=== PATIENT | female | born 1960 | race Caucasian/White ===

== ENCOUNTER → 2022-01-27 | Outpatient (CLI) | payer OTHER, SELFPAY ==
[2022-01-27 12:39] LABS: Absolute Lymphocyte Count 1.04 X10^3/uL (0.83-4.51); Absolute Neutrophil Count 5.5 X10^3/uL (2.0-7.7); Basophil# 0.06 X10^3/uL; Basophil% 0.8 % (0-1); Eosinophil# 0.02 X10^3/uL; Eosinophils% 0.3 % (0-5); Hematocrit 35.4 % (37-47); Hemoglobin 11.8 g/dL (12.0-15.0); Lymphocyte # 1.04 X10^3/ul (0.83-4.51); Lymphocyte % 14.1 % (19-41); Mean Corp Hgb Conc 33.3 g/dL (32-36); Mean Corpuscular Volume 98.9 fL (81-99); Mean Platelet Vol. 11.4 fl (6.2-12.0); Monocyte# 0.73 X10^3/uL; Monocyte% 9.9 % (0-10); NRBC Flagged by Analyzer 0 % (0-5); Neutrophil # 5.53 X10^3/uL (2.7-7.7); Neutrophil % 74.6 % (47-70); Platelet Count 146 K/mm3 (150-450); RBC Distribution Width CV 15.9 % (11.6-14.6); RBC Distribution Width SD 57.9 fl (35.1-43.9); Red Blood Count 3.58 M/mm3 (4.2-5.4); White Blood Count 7.4 K/mm3 (4.4-11.0)
[2022-01-27 13:05] LABS: ALB/GLOB Ratio 0.5 RATIO (0.9-2.4); AST(SGOT) 243 U/L (15-37); Alanine Aminotransfer ALT/SGPT 47 U/L (13-56); Albumin, Serum 2.5 g/dL (3.2-5.0); Alkaline Phosphatase 180 U/L (45-117); Anion Gap 13 (5-15); BUN 4 mg/dL (7-18); BUN/Creat Ratio 6.8 RATIO (10-20); Calcium,Total 7.8 mg/dL (8.5-10.1); Chloride 101 mmol/L (98-107); Cholesterol 215 mg/dL (200); Creatinine, Serum 0.58 mg/dL (0.55-1.02); EST Glomerular Filtration Rate 112 mL/min (>60); Est Glom Filt Rate - Afr Amer 135 mL/min (>60); Globulin 5.3 g/dL (2.2-4.2); Glucose 100 mg/dL (74-106); High Density Lipoprotein 14 mg/dL; Potassium 3.6 mmol/L (3.5-5.1); Protein, Total 7.8 g/dL (6.4-8.2); Sodium Level 138 mmol/L (136-145); Thyroid Stim Hormone (TSH) 8.14 uIU/mL (0.358-3.74); Triglycerides 189 mg/dL; Very Low Density Lipoprotein 38 mg/dL (5-40)
== END | disposition home or self-care (01) ==
LOC: MFPLAB 09:30
PROVIDERS: Family Medicine; PCP Family Medicine; Visit Provider Family Medicine
DX: M79.89 Other specified soft tissue disorders (principal); E78.2 Mixed hyperlipidemia
CPT/HCPCS: 36415; 80053; 80061; 84443; 85025

== ENCOUNTER → 2022-02-05 | Outpatient (CLI) | payer OTHER, SELFPAY ==
[2022-02-05 18:54] LABS: AST(SGOT) 191 U/L (15-37); Alanine Aminotransfer ALT/SGPT 60 U/L (13-56); Albumin, Serum 2.4 g/dL (3.2-5.0); Alkaline Phosphatase 139 U/L (45-117); Bilirubin, Direct 3.92 mg/dL (0.00-0.30); Globulin 4.8 g/dL (2.2-4.2); Protein, Total 7.2 g/dL (6.4-8.2)
== END | disposition home or self-care (01) ==
LOC: MFPLAB 15:25
PROVIDERS: PCP Family Medicine; Referring Provider Family Medicine; Visit Provider Family Medicine
DX: K76.9 Liver disease, unspecified (principal)
CPT/HCPCS: 36415; 80076

== ENCOUNTER → 2022-02-19 | Outpatient (CLI) | payer OTHER, SELFPAY ==
[2022-02-19 17:43] LABS: International Normalized Ratio 1.5; Prothrombin Time (Protime)PT. 18.2 SECONDS (11.7-14.9)
[2022-02-19 17:59] LABS: ALB/GLOB Ratio 0.4 RATIO (0.9-2.4); AST(SGOT) 165 U/L (15-37); Alanine Aminotransfer ALT/SGPT 57 U/L (13-56); Albumin, Serum 2.1 g/dL (3.2-5.0); Alkaline Phosphatase 130 U/L (45-117); Anion Gap 9 (5-15); BUN 9 mg/dL (7-18); BUN/Creat Ratio 12.7 RATIO (10-20); Calcium,Total 8.1 mg/dL (8.5-10.1); Chloride 96 mmol/L (98-107); Creatinine, Serum 0.71 mg/dL (0.55-1.02); EST Glomerular Filtration Rate 89 mL/min (>60); Est Glom Filt Rate - Afr Amer 108 mL/min (>60); Globulin 4.9 g/dL (2.2-4.2); Glucose 116 mg/dL (74-106); Potassium 3.6 mmol/L (3.5-5.1); Sodium Level 133 mmol/L (136-145)
== END | disposition home or self-care (01) ==
LOC: MFPLAB 16:11
PROVIDERS: PCP Family Medicine; Referring Provider Family Medicine; Visit Provider Family Medicine
DX: R94.5 Abnormal results of liver function studies (principal)
CPT/HCPCS: 36415; 80053; 85610

== ENCOUNTER → 2022-02-20 | Outpatient (CLI) | payer OTHER, SELFPAY ==
--- NOTE | 2022-02-20 15:00 | CT_ITS ---
INDICATION: Abnormal liver and abnormal abdominal swelling EXAMINATION: CT ABDOMEN AND PELVIS WITH AND WITHOUT CONTRAST - CT Abdomen And Pelvis WO/W Contrast Injection TECHNIQUE: Helically acquired images were obtained of the abdomen and pelvis both before and after IV contrast. A radiation dose optimization technique was used for this scan. IV Contrast dosage and agent: 100 mL of [id number]. Oral contrast: None. COMPARISON: None. FINDINGS: LOWER CHEST: Small bilateral pleural effusions are visualized, fluid level visualized within the right fissure. Subtle focal consolidations visualized in bilateral lower lung aragon. LIVER: Liver is slightly small in size demonstrates a nodular surface, a 2.1 cm lobulated low-attenuation lesion/cyst is visualized in the anterolateral aspect of the right lobe of the liver/simple cyst is visualized on axial series 2 image 32. A 1.1 cm area of low attenuation is visualized in the right lobe of the liver visualized on axial series 3 image 23. No evidence of intrahepatic biliary dilatation is visualized. The portal vein is small in size. GALLBLADDER AND BILIARY TREE: Irregular thickening of the wall of the gallbladder is visualized. Subtle layering calcifications visualized within the gallbladder but no evidence of distention to suggest obstruction. PANCREAS: No focal cystic or solid mass. SPLEEN: Normal size without focal cystic or solid mass. ADRENAL GLANDS: No nodules. KIDNEYS AND URETERS: Normal renal size and position. No hydronephrosis. PERITONEUM: Extensive amount of free fluid is visualized within the peritoneal cavity. Extension of fluid through bilateral inguinal canals is visualized more prominent on the left. A defect is visualized in the anterior abdominal wall in the midline with herniation of omentum seen. BOWEL: No evidence of acute appendicitis. No stomach or bowel distension. No focal inflammatory change. LYMPH NODES: Prominent ovoid low-attenuation retroperitoneal lymph nodes visualized on coronal series 601 image 78 measuring 1.3 and 2.0 cm. VESSELS: Prominent vessels visualized in the left upper quadrant. Prominent mesenteric vessels. Prominent ovarian vessels. Aorta is non-dilated. URINARY BLADDER: The bladder is decompressed. REPRODUCTIVE ORGANS: Atrophic uterus is seen. ABDOMINAL WALL: Stranding of the subcutaneous soft tissues is visualized but no evidence of localized collections is seen. BONES: No lytic or blastic abnormality. Degenerative bone changes seen. CT/CT Abd/Pelvis W/WO Contrast IMPRESSION: Extensive ascites is seen. Prominent vessels seen suggestive of portosystemic anastomosis. Small portal vein. Liver is small in size with nodular appearance of focal areas of low attenuation seen. Electronically Signed: Diego Rodriguez MD at 16:17 EDT ,
== END | disposition home or self-care (01) ==
LOC: CT 14:58
PROVIDERS: PCP Family Medicine; Visit Provider Family Medicine
DX: R14.0 Abdominal distension (gaseous) (principal); R94.5 Abnormal results of liver function studies
CPT/HCPCS: 74178; Q9967

== ENCOUNTER → 2022-02-25 | Outpatient (CLI) | payer OTHER, SELFPAY ==
[2022-02-25 17:59] LABS: Ferritin 391 ng/mL (8-252)
[2022-02-26 09:13] LABS: Hepatitis B Surface Antigen Non-Reactive (Nonreactive); Hepatitis C Antibody Preliminary Reactive (Nonreactive)
[2022-02-27 15:08] LABS: ANTINUCLEAR ANTIBODIES DIRECT Negative (Negative)
[2022-02-27 16:24] LABS: Alpha Antitrypsin Serum 162 mg/dL (101-187); Anti-Mitochondrial AB <20.0 Units (0.0-20.0)
== END | disposition home or self-care (01) ==
PROVIDERS: PCP Family Medicine; Referring Provider Internal Medicine Gastroenterology; Visit Provider Internal Medicine Gastroenterology
DX: K74.60 Unspecified cirrhosis of liver (principal); B19.20 Unspecified viral hepatitis C without hepatic coma
CPT/HCPCS: 36415; 82103; 82105; 82390; 82728; 83516; 86038; 86803; 87340; 87902

== ENCOUNTER → 2022-03-10 | Outpatient (CLI) | payer OTHER, SELFPAY ==
--- NOTE | 2022-03-10 09:44 | US_ITS ---
PROCEDURE: Ultrasound guided paracentesis. DATE OF EXAMINATION: 03/10/2022. INDICATION: Female, 61 years old. Ascites. PHYSICIAN: Xavier Forrester M.D. TECHNIQUE: The risks, benefits, and alternatives to the procedure were explained to the patient. The specific risks of bleeding, infection, and damage to bowel were detailed and accepted. Witnessed informed consent was obtained. The abdomen was ultrasonographically surveyed. An appropriate pocket of fluid was identified at the right lower quadrant. The skin were cleaned and prepped in the usual sterile fashion. Using ultrasound guidance, the peritoneal cavity was accessed with a 5-Ukrainian paracentesis needle/catheter system. The trocar was removed. A total of 2550 ml of john-colored fluid were removed from the peritoneal cavity. The catheter was removed and a sterile dressing was applied. The procedure was well tolerated. US/Paracentesis with US IMPRESSION: Ultrasound guided paracentesis. Electronically Signed: Xavier Forrester MD at 10:49 EDT ,
[2022-03-10 10:15] VITALS: BP 125/70; PULSE 93; RESP 18; TEMP 36.6; O2SAT 100
[2022-03-10] MEDS: Lidocaine 2% (20 ml mdv) 20 ML Vial INFILT (10:17)
== END | disposition home or self-care (01) ==
PROVIDERS: PCP Family Medicine; Referring Provider Internal Medicine Gastroenterology; Visit Provider Internal Medicine Gastroenterology
DX: K74.60 Unspecified cirrhosis of liver (principal); R18.8 Other ascites
CPT/HCPCS: 49083

== ENCOUNTER 2022-03-13 14:35 | Emergency (ER) | payer OTHER, SELFPAY ==
[2022-03-13 14:36] VITALS: BP 129/70; PULSE 100; RESP 16; TEMP 35.7; O2SAT 100; BMI 23.0
[2022-03-13 15:29] LABS: Absolute Lymphocyte Count 0.82 X10^3/uL (0.83-4.51); Absolute Neutrophil Count 6.3 X10^3/uL (2.0-7.7); Basophil# 0.04 X10^3/uL; Basophil% 0.5 % (0-1); Eosinophil# 0.03 X10^3/uL; Eosinophils% 0.4 % (0-5); Hematocrit 38.3 % (37-47); Hemoglobin 12.9 g/dL (12.0-15.0); Lymphocyte # 0.82 X10^3/ul (0.83-4.51); Lymphocyte % 10.7 % (19-41); Mean Corp Hgb Conc 33.7 g/dL (32-36); Mean Corpuscular Hgb 33.9 pg (27.0-32.0); Mean Corpuscular Volume 100.8 fL (81-99); Monocyte% 6.5 % (0-10); NRBC Flagged by Analyzer 0 % (0-5); Neutrophil # 6.26 X10^3/uL (2.7-7.7); Neutrophil % 81.5 % (47-70); Platelet Count 146 K/mm3 (150-450); RBC Distribution Width CV 15.1 % (11.6-14.6); RBC Distribution Width SD 55.8 fl (35.1-43.9); White Blood Count 7.7 K/mm3 (4.4-11.0)
[2022-03-13 15:48] LABS: ALB/GLOB Ratio 0.4 RATIO (0.9-2.4); AST(SGOT) 77 U/L (15-37); Alanine Aminotransfer ALT/SGPT 39 U/L (13-56); Albumin, Serum 2.4 g/dL (3.2-5.0); Alkaline Phosphatase 123 U/L (45-117); Anion Gap 10 (5-15); BUN 9 mg/dL (7-18); BUN/Creat Ratio 11.2 RATIO (10-20); Calcium,Total 8.7 mg/dL (8.5-10.1); Chloride 100 mmol/L (98-107); EST Glomerular Filtration Rate 78 mL/min (>60); Est Glom Filt Rate - Afr Amer 94 mL/min (>60); Estimated Creatinine Clearance 61.86 ml/min; Globulin 6.1 g/dL (2.2-4.2); Glucose 124 mg/dL (74-106); Potassium 3.7 mmol/L (3.5-5.1); Protein, Total 8.5 g/dL (6.4-8.2); Sodium Level 134 mmol/L (136-145)
[2022-03-13 16:35] VITALS: RESP 16
[2022-03-13 17:11] VITALS: RESP 16
--- NOTE | 2022-03-13 17:11 | ED.VIS.GI ---
HPI HPI - GI History of Present Illness Chief Complaint: Abd Pain Narrative Narrative: 61-year-old female presenting with abdominal pain which is now resolved. She states she has a history of cirrhosis but is on spironolactone and Lasix. Patient states that the last time she had paracentesis only took off 2 L. She does not feel like she is bloated. She states that her abdominal pain was diffuse and achy. It lasted all morning. When she went home she told her family that it was still hurting. When she arrived to the ED she was nauseous. I tried to call Dr. Blankenship but the office was closed. They states currently she has minimal pain. She does not have any nausea. She is eating and drinking normally. Is making normal urine and stooling. He has not had any fevers. [facility] Medical History Ascites Cirrhosis Home Medications furosemide 20 mg tablet 20 mg PO DAILY 03/10/22 [History Last Taken Unknown] spironolactone 50 mg tablet 50 mg PO DAILY 03/10/22 [History Last Taken Unknown] Allergy/AdvReac Type Severity Reaction Status Date / Time No Known Allergies Allergy Verified 03/13/22 14:36 Family History Mother Hypertension Surgical History deliv NOS-unsp Social History Smoking Status: Former smoker alcohol intake: former details: occasional, now abstaining substance use type: does not use ROS ROS ED Constitutional Constitutional ED: Denies chills or fever(s) ENT ENT ED: Denies ear pain or rhinorrhea Cardiovascular Cardiovascular: Denies chest pain or palpitations Respiratory/Chest Respiratory/Chest: Denies cough or dyspnea Gastrointestinal Gastrointestinal: Reports abdominal pain and nausea; Denies constipation, diarrhea or vomiting Genitourinary Genitourinary ED: Denies dysuria or hematuria Musculoskeletal Musculoskeletal: Denies arthralgias or back pain Integumentary Denies abscess Neurologic Neurologic: Denies headache(s) or paresthesias Psychiatric Psychiatric: Denies anxiety or depression EXAM Physical Exam Const Vital Signs: 03/13/22 14:36 Temperature 96.2 F L Temperature Source Temporal Pulse Rate 100 Respiratory Rate 16 Blood Pressure 129/70 H Blood Pressure Mean 89 Pulse Ox 100 Oxygen Delivery Method Room Air Positive well nourished General Appearance ED: NAD; Negative for pallor HEENT Reports moist mucous membranes Eyes PERRL and EOMs intact bilaterally General Eye ED: Yes scleral icterus Resp normal respiratory effort and clear to auscultation bilaterally Auscultation: Negative for rales, rhonchi or wheezes Cardio regular rate and regular rhythm GI non-tender, non-distended and no masses Neuro CN's II-XII intact bilaterally and moves all extremities Sensorium / Orientation: alert Motor Exam: strength 5/5 throughout and general weakness Psych mental status grossly normal and thought process normal Skin no wounds General Skin Exam: jaundice; Negative for pallor MDM MDM MDM Narrative Medical decision making narrative: Patient had protocol labs done while she was waiting in the waiting room due to heavy volumes in the emergency room. CBC was obtained and this is normal. She has no leukocytosis or anemia. Her creatinine is normal. Electrolytes are within normal limits. Her total bilirubin is 4.3 but this is baseline. Her AST slightly elevated at 77 and her ALT is 39. Alkaline phosphatase 23. These are all baseline as well. Patient currently pain-free does not want thing for pain. She states she had nausea when she arrived but currently is not nauseous. I do not believe she needs any imaging based on her exam and she does not have a fluid wave on exam. She currently wants to go home and she will return if she feels worse. I feel this is reasonable. Patient discharged home in stable condition. Impression: 1. Nausea 2. Abdominal pain resolved 3. History of process 4. Hyperbilirubinemia Lab Data Attestation: I reviewed the patient's lab results. Labs: Laboratory Results - last 24 hr 03/13/22 03/13/22 15:20 15:20 WBC 7.7 RBC 3.80 L Hgb 12.9 Hct 38.3 MCV 100.8 H MCH 33.9 H MCHC 33.7 RDW Std Deviation 55.8 H RDW Coeff of Harry 15.1 H Plt Count 146 L MPV 10.0 Immature Gran % (Auto) 0.400 Neut % (Auto) 81.5 H Lymph % (Auto) 10.7 L Vermilion % (Auto) 6.5 Eos % (Auto) 0.4 Baso % (Auto) 0.5 Absolute Neuts (auto) 6.3 Absolute Lymphs (auto) 0.82 L Nucleated RBC % 0 Sodium 134 L Potassium 3.7 Chloride 100 Carbon Dioxide 24.0 Anion Gap 10 BUN 9 Creatinine 0.80 Estim Creat Clear Calc 61.86 Est GFR (MDRD) Af Amer 94 Est GFR (MDRD) Non-Af 78 BUN/Creatinine Ratio 11.2 Glucose 124 H Calcium 8.7 Total Bilirubin 4.30 H AST 77 H ALT 39 Alkaline Phosphatase 123 H Total Protein 8.5 H Albumin 2.4 L Globulin 6.1 H Albumin/Globulin Ratio 0.4 L Discharge Plan Triage Chief Complaint: Abd Pain ED Provider: Benitez Treadwell Dx/Rx/DC Orders Prescriptions: No Action furosemide 20 mg Tablet 20 mg PO DAILY spironolactone 50 mg Tablet 50 mg PO DAILY Primary Care Provider: Lois Barry Referrals: Lois Barry, [Primary Care Provider] -
[2022-03-13 17:36] LABS: Lipase 293 U/L (73-393)
== END 2022-03-13 17:30 | disposition home or self-care (01) ==
PROVIDERS: Emergency Provider Student in an Organized Health Care Education/Training Program; PCP Family Medicine; Visit Provider Student in an Organized Health Care Education/Training Program
DX: E80.7 Disorder of bilirubin metabolism, unspecified (principal); R10.9 Unspecified abdominal pain; R11.0 Nausea; Z87.891 Personal history of nicotine dependence
CPT/HCPCS: 80053; 83690; 85025; 99282; A4216

== ENCOUNTER → 2022-03-31 | Outpatient (CLI) | payer OTHER, SELFPAY ==
[2022-03-31 18:01] LABS: Hematocrit 33.6 % (37-47); Hemoglobin 11.3 g/dL (12.0-15.0); Mean Corp Hgb Conc 33.6 g/dL (32-36); Mean Corpuscular Hgb 33.7 pg (27.0-32.0); Mean Corpuscular Volume 100.3 fL (81-99); Mean Platelet Vol. 9.7 fl (6.2-12.0); Platelet Count 173 K/mm3 (150-450); RBC Distribution Width CV 15.8 % (11.6-14.6); RBC Distribution Width SD 57.7 fl (35.1-43.9); Red Blood Count 3.35 M/mm3 (4.2-5.4); White Blood Count 7.8 K/mm3 (4.4-11.0)
[2022-03-31 18:06] LABS: International Normalized Ratio 1.6; Prothrombin Time (Protime)PT. 18.3 SECONDS (11.7-14.9)
[2022-03-31 18:07] LABS: Partial Thromboplast Time 33.3 Seconds (24.1-36.2)
[2022-03-31 19:28] LABS: ALB/GLOB Ratio 0.5 RATIO (0.9-2.4); AST(SGOT) 56 U/L (15-37); Alanine Aminotransfer ALT/SGPT 35 U/L (13-56); Albumin, Serum 2.5 g/dL (3.2-5.0); Alkaline Phosphatase 102 U/L (45-117); Anion Gap 10 (5-15); BUN 12 mg/dL (7-18); BUN/Creat Ratio 13.8 RATIO (10-20); Calcium,Total 8.9 mg/dL (8.5-10.1); Chloride 97 mmol/L (98-107); Creatinine, Serum 0.87 mg/dL (0.55-1.02); EST Glomerular Filtration Rate 71 mL/min (>60); Est Glom Filt Rate - Afr Amer 86 mL/min (>60); Globulin 5.5 g/dL (2.2-4.2); Glucose 107 mg/dL (74-106); Potassium 3.8 mmol/L (3.5-5.1); Sodium Level 130 mmol/L (136-145)
[2022-04-01 08:58] LABS: Hepatitis B Surface Antigen Non-Reactive (Nonreactive)
[2022-04-01 10:30] LABS: Hepatitis C Antibody REACTIVE (Nonreactive)
[2022-04-03 15:57] LABS: Hepatitis A AB, Total Negative (Negative)
== END | disposition home or self-care (01) ==
PROVIDERS: PCP Family Medicine; Referring Provider Internal Medicine Gastroenterology; Visit Provider Internal Medicine Gastroenterology
DX: K74.60 Unspecified cirrhosis of liver (principal)
CPT/HCPCS: 36415; 80053; 85027; 85610; 85730; 86708; 86803; 87340

== ENCOUNTER → 2022-04-07 | Outpatient (CLI) | payer OTHER, SELFPAY ==
--- NOTE | 2022-04-07 09:29 | US_ITS ---
STUDY: ABDOMINAL ULTRASOUND - RIGHT UPPER QUADRANT REASON FOR VISIT: Female, 61 years old CIRRHOSIS TECHNIQUE: Ultrasound evaluation of the 4 quadrants was performed with real-time and static mckeon-scale imaging. TECHNICAL QUALITY: Adequate. COMPARISON: None. FINDINGS: No evidence of ascites. Incidental note is made of a right pleural effusion. US/Abdomen Limited IMPRESSION: No evidence of ascites. Incidental note is made of a right pleural effusion. Electronically Signed: Xavier Forrester MD at 14:49 EST ,
== END | disposition home or self-care (01) ==
PROVIDERS: PCP Family Medicine; Referring Provider Internal Medicine Gastroenterology; Visit Provider Internal Medicine Gastroenterology
DX: K74.60 Unspecified cirrhosis of liver (principal); R18.8 Other ascites
CPT/HCPCS: 76705

== ENCOUNTER → 2022-05-05 | Outpatient (CLI) | payer OTHER, SELFPAY ==
--- NOTE | 2022-05-05 12:10 | US_ITS ---
STUDY: ABDOMINAL ULTRASOUND - 4 quadrants REASON FOR VISIT: Female, 61 years old CIRRHOSIS -- ASCITES SURVEY TECHNIQUE: Ultrasound evaluation of the 4 quadrants was performed with real-time and static mckeon-scale imaging. TECHNICAL QUALITY: Adequate. COMPARISON: None. FINDINGS: A survey of the 4 quadrants was performed for assessment of ascites. There is no evidence of ascites. US/Abdomen Limited IMPRESSION: No evidence of ascites. Electronically Signed: Xavier Forrester MD at 8:29 EST ,
[2022-05-05 14:08] LABS: ALB/GLOB Ratio 0.6 RATIO (0.9-2.4); AST(SGOT) 63 U/L (15-37); Alanine Aminotransfer ALT/SGPT 48 U/L (13-56); Albumin, Serum 2.9 g/dL (3.2-5.0); Alkaline Phosphatase 88 U/L (45-117); Anion Gap 5 (5-15); BUN 23 mg/dL (7-18); BUN/Creat Ratio 21.5 RATIO (10-20); Calcium,Total 9.3 mg/dL (8.5-10.1); Chloride 100 mmol/L (98-107); Creatinine, Serum 1.07 mg/dL (0.55-1.02); EST Glomerular Filtration Rate 56 mL/min (>60); Est Glom Filt Rate - Afr Amer 67 mL/min (>60); Globulin 4.9 g/dL (2.2-4.2); Glucose 109 mg/dL (74-106); Potassium 4.1 mmol/L (3.5-5.1); Protein, Total 7.8 g/dL (6.4-8.2); Sodium Level 131 mmol/L (136-145)
== END | disposition home or self-care (01) ==
PROVIDERS: PCP Family Medicine; Referring Provider Internal Medicine Gastroenterology; Visit Provider Internal Medicine Gastroenterology
DX: K74.60 Unspecified cirrhosis of liver (principal); R18.8 Other ascites
CPT/HCPCS: 36415; 76705; 80053

== ENCOUNTER → 2022-06-11 | Outpatient (CLI) | payer OTHER, SELFPAY ==
--- NOTE | 2022-06-11 15:45 | RAD_ITS ---
STUDY: X-RAY - ABDOMEN/PELVIS REASON FOR EXAM: Female, 61 years old. Abdominal pain. TECHNIQUE: Two AP supine views of the abdomen and pelvis. COMPARISON: None. FINDINGS: Normal visualized lung bases. There is an unremarkable bowel gas pattern. Air and feces is seen throughout nondistended colon. There is no small bowel dilatation. There is no demonstrated free abdominal air. The visualized liver, spleen and kidneys are grossly normal in size and morphology. Normal soft tissue structures. Scoliosis and degenerative changes of the thoracic spine. RAD/Abdomen Single View IMPRESSION: No acute intra-abdominal or pelvic process. Electronically Signed: Ashutosh Rausch DO at 16:15 EST ,
[2022-06-11 17:52] LABS: Hematocrit 35.6 % (37-47); Hemoglobin 11.9 g/dL (12.0-15.0); Mean Corp Hgb Conc 33.4 g/dL (32-36); Mean Corpuscular Hgb 33.8 pg (27.0-32.0); Mean Corpuscular Volume 101.1 fL (81-99); Mean Platelet Vol. 10.2 fl (6.2-12.0); Platelet Count 194 K/mm3 (150-450); RBC Distribution Width SD 52.9 fl (35.1-43.9); Red Blood Count 3.52 M/mm3 (4.2-5.4); White Blood Count 7.2 K/mm3 (4.4-11.0)
[2022-06-11 18:00] LABS: International Normalized Ratio 1.2; Prothrombin Time (Protime)PT. 15.3 SECONDS (11.7-14.9)
[2022-06-11 18:12] LABS: ALB/GLOB Ratio 0.7 RATIO (0.9-2.4); AST(SGOT) 57 U/L (15-37); Alanine Aminotransfer ALT/SGPT 44 U/L (13-56); Alkaline Phosphatase 87 U/L (45-117); Anion Gap 10 (5-15); BUN 28 mg/dL (7-18); BUN/Creat Ratio 28.3 RATIO (10-20); Calcium,Total 9.4 mg/dL (8.5-10.1); Chloride 100 mmol/L (98-107); Creatinine, Serum 0.99 mg/dL (0.55-1.02); EST Glomerular Filtration Rate 61 mL/min (>60); Est Glom Filt Rate - Afr Amer 74 mL/min (>60); Globulin 4.6 g/dL (2.2-4.2); Glucose 109 mg/dL (74-106); Potassium 4.6 mmol/L (3.5-5.1); Protein, Total 7.6 g/dL (6.4-8.2); Sodium Level 134 mmol/L (136-145)
[2022-06-11 18:21] LABS: Erythrocyte Sedimentation Rate 55 mm/hr (0-30)
[2022-06-14 16:08] LABS: HCV Quant. RNA PCR HCV Not Detected IU/mL (.)
== END | disposition home or self-care (01) ==
PROVIDERS: PCP Family Medicine; Referring Provider Internal Medicine Gastroenterology; Visit Provider Internal Medicine Gastroenterology
DX: K74.60 Unspecified cirrhosis of liver (principal); R10.9 Unspecified abdominal pain
CPT/HCPCS: 36415; 74018; 80053; 85027; 85610; 85652; 85730; 87522

== ENCOUNTER → 2022-06-16 | Outpatient (CLI) | payer OTHER, SELFPAY ==
--- NOTE | 2022-06-16 15:05 | RAD_ITS ---
INDICATION: DYSPNEA EXAMINATION/TECHNIQUE: X-RAY - XR Chest 3 Views COMPARISON: None. FINDINGS: LINES/DEVICES: None. LUNGS: No consolidation, edema or effusion. No pneumothorax. MEDIASTINUM AND CARDIOVASCULAR STRUCTURES: Cardiac silhouette not enlarged. Central airways and mediastinal contour are unremarkable. BONES AND SOFT TISSUES: Vertebral scoliosis at the thoracolumbar junction. RAD/Chest 3 View IMPRESSION: No radiographic evidence of acute cardiopulmonary disease. Electronically Signed: Ayan Rodrigues DO at 22:12 EST ,
[2022-06-16 15:18] LABS: Erythrocyte Sedimentation Rate 36 mm/hr (0-30)
[2022-06-18 15:25] LABS: ANTINUCLEAR ANTIBODIES DIRECT Negative (Negative); Anti-dsDNA Ab 1 IU/mL (0-9)
[2022-06-18 16:51] LABS: Anti-Smooth Muscle ABS 22 Units (0-19); CCP IgG Antibodies 11 units (0-19)
== END | disposition home or self-care (01) ==
PROVIDERS: PCP Family Medicine; Referring Provider Internal Medicine Pulmonary Disease; Visit Provider Internal Medicine Gastroenterology
DX: K74.60 Unspecified cirrhosis of liver (principal); D69.6 Thrombocytopenia, unspecified; R06.00 Dyspnea, unspecified; R07.9 Chest pain, unspecified; J90 Pleural effusion, not elsewhere classified; R10.9 Unspecified abdominal pain
CPT/HCPCS: 71047; 83516; 85652; 86038; 86200; 86225

== ENCOUNTER → 2022-06-27 | Outpatient (CLI) | payer OTHER, SELFPAY ==
[2022-06-30 14:08] LABS: Immunoglobulin G 1838 mg/dL (586-1602)
[2022-06-30 17:03] LABS: Immunoglobulin A 851 mg/dL (87-352); Immunoglobulin M 112 mg/dL (26-217)
== END | disposition home or self-care (01) ==
LOC: MTLAB 15:11
PROVIDERS: PCP Family Medicine; Referring Provider Internal Medicine Gastroenterology; Visit Provider Internal Medicine Gastroenterology
DX: K74.60 Unspecified cirrhosis of liver (principal)
CPT/HCPCS: 36415; 82784; 86334